=== PATIENT | female | born 1980 | race African-American/Black ===

== ENCOUNTER 2023-06-30 11:22 | Observation (INO) | payer OTHER ==
[2023-06-30] MEDS ORDERED: SODIUM CHLORIDE 0.9% 500 ML INFUS.BAG IV ONE (12:35)
[2023-06-30 13:16] LABS: BASO % 0.6 % (0-2.0); EOS % 0.1 % (0-4.5); HEMATOCRIT 24.9 % (32.4-45.2); HEMOGLOBIN 7.3 GM/dL (10.7-15.3); MCHC 29.5 g/dl (32.0-36.0); MEAN CELL VOLUME 59.5 fl (80-96); MEAN PLT VOLUME 8.5 fl (7.5-11.1); MONO % 13.1 % (3.8-10.2); NEUT % 62.2 % (42.8-82.8); PLATELET COUNT 338 10^3/uL (134-434); RBC 4.18 M/mm3 (3.60-5.2); RDW 19.7 % (11.6-15.6); WHITE BLOOD COUNT 4.6 K/mm3 (4.0-10.0)
[2023-06-30 13:17] LABS: MCH 17.6 pg (25.7-33.7)
[2023-06-30 13:47] LABS: POTASSIUM 4.1 mmol/L (3.5-5.1)
[2023-06-30 13:50] LABS: BLOOD UREA NITROGEN 7.5 mg/dL (7-18); CALCIUM 8.9 mg/dL (8.5-10.1)
[2023-06-30 13:53] LABS: CREATININE 0.7 mg/dL (0.55-1.3)
[2023-06-30 13:55] LABS: BILIRUBIN,TOTAL 0.4 mg/dL (0.2-1)
[2023-06-30 14:27] LABS: ANISOCYTOSIS 3+; MACROCYTOSIS 0
[2023-07-01 00:54] VITALS: BMI 29.3
[2023-07-01 09:45] LABS: BASO % 0.8 % (0-2.0); EOS % 0.6 % (0-4.5); HEMATOCRIT 29.3 % (32.4-45.2); HEMOGLOBIN 9.3 GM/dL (10.7-15.3); LYMPH % 19.2 % (8-40); MCHC 31.7 g/dl (32.0-36.0); MEAN CELL VOLUME 62.8 fl (80-96); MEAN PLT VOLUME 8.6 fl (7.5-11.1); MONO % 8.3 % (3.8-10.2); NEUT % 71.1 % (42.8-82.8); PLATELET COUNT 315 10^3/uL (134-434); RBC 4.67 M/mm3 (3.60-5.2); RDW 23.5 % (11.6-15.6)
[2023-07-01 09:49] LABS: MCH 19.9 pg (25.7-33.7)
[2023-07-01 17:01] VITALS: BP 130/85; PULSE 100; RESP 16; TEMP 98.8
== END 2023-07-01 17:08 | disposition home or self-care (01) ==
LOC: JER 11:22 → JERBED 15:09 → J5S 22:37
PROVIDERS: ADMIT Internal Medicine; ATTEND Family Medicine
PROC: 3E0337Z Introduction of Electrolytic and Water Balance Substance into Peripheral Vein, Percutaneous Approach (ICD-10-PCS; principal; 2023-06-30)
PROC: 30233N1 Transfusion of Nonautologous Red Blood Cells into Peripheral Vein, Percutaneous Approach (ICD-10-PCS; 2023-06-30)
DX: D50.9 Iron deficiency anemia, unspecified (principal); N92.0 Excessive and frequent menstruation with regular cycle; D25.9 Leiomyoma of uterus, unspecified; I10 Essential (primary) hypertension; R06.00 Dyspnea, unspecified; D64.9 Anemia, unspecified
CPT/HCPCS: 36415; 36430; 80053; 84484; 85025; 86850; 86900; 86901; 86922; 93005; 93010; 96360; 99285-25; G0378; P9058